=== PATIENT | male | born 1965 | race Caucasian/White ===

== ENCOUNTER 2019-11-29 00:21 | Inpatient (IN) | payer MEDICAID, OTHER ==
[~2019-11-29] VITALS: Ht 182.9 cm; Wt 79.4 kg
--- NOTE | 2019-11-29 00:35 | NUR ---
Dr. Reyes at bedside for MSE. ACE performed on RA.
[2019-11-29] MEDS ORDERED: ONDANSETRON 4 MG/2 ML VIAL IV ONE (00:45)
[2019-11-29] MEDS ORDERED: VANCOMYCIN IV 1,000 MG in IV DEXTROSE 5% 250 ML IV ONE (00:45)
[2019-11-29] MEDS ORDERED: HYDROMORPHONE 1 MG/1 ML DISP.SYRIN IV ONE (00:45)
--- NOTE | 2019-11-29 00:45 | NUR ---
Pt drove self to ER, able to enter room with steady gait. AO x 4. Primary reason for being here is redness, swelling on R upper arm, accompanied by 10/10 pain when arm is being used. Pt suspects it is an insect bite, 3 days ago. Patient able to move fingers on L arm, with pain and difficulty. Pulses equally palpable on both arms. L hand has less dexterity compared to R arm. Slight loss of sensation on the L thumb. No signs of cardio pulmonary distress. Breathing is even and unlabored. No other GI/ symptoms noted. Skin is intact otherwise. Fall and safety precautions maintained.
[2019-11-29] MEDS ORDERED: ONDANSETRON 4 MG/2 ML VIAL ONE (00:58)
[2019-11-29] MEDS ORDERED: HYDROMORPHONE 1 MG/1 ML DISP.SYRIN ONE (00:58)
[2019-11-29] MEDS ORDERED: VANCOMYCIN IV 200 ML ONE (00:58)
[2019-11-29 01:06] LABS: BASOPHILS # (AUTO) 0.1 K/uL (0.0-8.0); BASOPHILS % (AUTO) 0.4 % (0.0-2.0); EOSINOPHILS # (AUTO) 0.1 K/uL (0.0-0.7); EOSINOPHILS % (AUTO) 0.7 % (0.0-7.0); HEMATOCRIT 42.2 % (36.7-47.1); HEMOGLOBIN 14.1 g/dL (12.5-16.3); LYMPHOCYTES # (AUTO) 1.4 K/uL (20.0-40.0); LYMPHOCYTES % (AUTO) 8.4 % (20.5-51.5); MEAN CORPUSCULAR HEMOGLOBIN 29.8 uug (23.8-33.4); MEAN CORPUSCULAR HGB CONC 33 g/dL (32.5-36.3); MEAN CORPUSCULAR VOLUME 89.5 fL (73.0-96.2); MONOCYTES # (AUTO) 1.6 K/uL (2.0-10.0); MONOCYTES % (AUTO) 9.3 % (0.0-11.0); NEUTROPHILS # (AUTO) 13.8 K/uL (1.8-8.9); NEUTROPHILS % (AUTO) 81.2 % (38.5-71.5); PLATELET COUNT (AUTO) 235 K/uL (152-348); RED BLOOD CELL COUNT(AUTO) 4.72 MIL/uL (4.06-5.63)
[2019-11-29 01:11] LABS: BILIRUBIN,DIRECT 0.1 mg/dL (0.0-0.2); BILIRUBIN,TOTAL 0.8 mg/dL (0.2-1.0); CREATININE 1.2 mg/dL (0.6-1.3); POTASSIUM 4.1 mmol/L (3.5-5.1); TOTAL PROTEIN, SERUM 7.4 g/dL (6.4-8.2)
--- NOTE | 2019-11-29 01:30 | NUR ---
Brought down to Ct, accompanied by tech. Pt signed consent for IV contrast. Verbalized understanding on all teaching.
[2019-11-29] MEDS ORDERED: IOHEXOL 300MG/ML 100 ML INFUS..BTL ONE (01:31)
[2019-11-29] MEDS ORDERED: SWABABLE VALVE TRANSFER SET EA MC ONE (01:31)
[2019-11-29] MEDS ORDERED: IV NORMAL SALINE 250 ML IV ONE (01:32)
[2019-11-29] MEDS ORDERED: METRONIDAZOLE 500 MG/NS 100 ML PIGGYBACK IV ONE (01:45)
[2019-11-29 01:51] LABS: *BILIRUBIN,URIN NEGATIVE (NEGATIVE); *BLOOD, URINE 2+ (NEGATIVE); *CLARITY,URINE CLEAR (CLEAR); *COLOR,URINE YELLOW (YELLOW); *KETONES,URINE NEGATIVE (NEGATIVE); LEUKOCYTE ESTERASE ,URINE NEGATIVE (NEGATIVE); NITRITE, URINE NEGATIVE (NEGATIVE); PH,URINE 6.5 (5.0-8.0); UGLUCOSE NEGATIVE (NEGATIVE)
[2019-11-29 02:07] LABS: BACTERIA,URINE NONE SEEN /HPF (NONE SEEN); RBC,URINE 0-3 /HPF (0-3); SQUAMOUS EPITHELIAL CELL,UR NONE SEEN /HPF (NONE SEEN); WBC,URINE 20-50 /HPF (0-3)
[2019-11-29 02:08] LABS: MUCUS,URINE FEW /LPF (0-FEW)
--- NOTE | 2019-11-29 02:10 | NUR ---
Called [facility] for panel placement
[2019-11-29 02:11] LABS: *AMPHETAMINE, URINE POSITIVE (NEGATIVE); *BARBITURATE, URINE NEGATIVE (NEGATIVE); *CANNABINOID, URINE NEGATIVE (NEGATIVE); *COCCAINE, URINE POSITIVE (NEGATIVE); *OPIATE, URINE NEGATIVE (NEGATIVE); *PHENCYCLIDINE SCREEN,URINE NEGATIVE (NEGATIVE)
[2019-11-29] MEDS ORDERED: METRONIDAZOLE 500 MG/NS 100ML 100 ML IV ONE (02:15)
--- NOTE | 2019-11-29 02:19 | NUR ---
Dr. Reyes spoke with [facility] who accepted patient for MedSurg for Cellulitis.
--- NOTE | 2019-11-29 02:25 | NUR ---
Report given to Deonte NORRIS.
--- NOTE | 2019-11-29 03:00 | NUR ---
Pt transported to Med Surg in stable condition via wheelchair.
[2019-11-29 03:16] VITALS: BP 110/73
--- NOTE | 2019-11-29 03:49 | NUR ---
admitted male alert x4 with swelling of left upper extremity,oriented to floor,resting comfortably
[2019-11-29] MEDS ORDERED: ONDANSETRON 4 MG/2 ML VIAL IV PRN (05:00)
[2019-11-29] MEDS ORDERED: Z GUARD REMEDY PASTE 57 GM TUBE TOP PRN (05:00)
[2019-11-29] MEDS ORDERED: ZOLPIDEM 5 MG TABLET PO PRN (05:00)
[2019-11-29] MEDS ORDERED: MORPHINE SULFATE 2 MG/1 ML DISP.SYRIN IV PRN (05:00)
[2019-11-29] MEDS: IV NS 1000 ML 1,000 ML IV PRN ×2 (05:26→21:15)
[2019-11-29] MEDS ORDERED: PIPERACILLIN/TAZOBACTAM/D5W 50 ML IV ONE (05:36)
[2019-11-29] MEDS ORDERED: PIPERACILLIN SODIUM/TAZOBACTAM 3.375 G in IV DEXTROSE 5% 50 ML IV SCH (06:00)
[2019-11-29 06:43] LABS: BASOPHILS # (AUTO) 0.1 K/uL (0.0-8.0); BASOPHILS % (AUTO) 0.6 % (0.0-2.0); EOSINOPHILS # (AUTO) 0.3 K/uL (0.0-0.7); EOSINOPHILS % (AUTO) 1.7 % (0.0-7.0); HEMATOCRIT 40.8 % (36.7-47.1); HEMOGLOBIN 13.4 g/dL (12.5-16.3); LYMPHOCYTES # (AUTO) 1.7 K/uL (20.0-40.0); LYMPHOCYTES % (AUTO) 11.4 % (20.5-51.5); MEAN CORPUSCULAR HEMOGLOBIN 29.7 uug (23.8-33.4); MEAN CORPUSCULAR HGB CONC 33 g/dL (32.5-36.3); MEAN CORPUSCULAR VOLUME 90.5 fL (73.0-96.2); MONOCYTES # (AUTO) 1.5 K/uL (2.0-10.0); NEUTROPHILS # (AUTO) 11.4 K/uL (1.8-8.9); NEUTROPHILS % (AUTO) 76.3 % (38.5-71.5); PLATELET COUNT (AUTO) 217 K/uL (152-348); RED BLOOD CELL COUNT(AUTO) 4.51 MIL/uL (4.06-5.63)
[2019-11-29 07:03] LABS: BILIRUBIN,TOTAL 0.5 mg/dL (0.2-1.0); MAGNESIUM 1.8 mg/dL (1.8-2.4); PHOSPHOROUS 3.4 mg/dL (2.5-4.9); POTASSIUM 3.7 mmol/L (3.5-5.1); TOTAL PROTEIN, SERUM 6.7 g/dL (6.4-8.2)
[2019-11-29] MEDS: MORPHINE SULFATE 4 MG/1 ML DISP.SYRIN IV PRN ×2 (07:41→17:44)
[2019-11-29] MEDS: ENOXAPARIN SODIUM 40 MG/0.4 ML DISP.SYRIN SQ SCH (08:33)
--- NOTE | 2019-11-29 09:05 | NUR ---
Clinical Pharmacy Note: Vancomycin Pharmacy to Dose Subjective: To start vancomcyin in this 54 y/o male for indication of cellulitis Objective: weight 79kg height 182cm BUN/SCr 16/1.0 Wbc 15 temp 98.5 1gm vanco given in ER 11/28 @ 0100 Assessment/Plan As renal function appears stable, will start vanco regimen of 1250mg q11hr for estimated trough of 16.37, first dose today at 1200. Will order trough before 4th scheduled dose (due tomorrow 11/29 @2030). Will check level when available and adjust as needed. Will follow
[2019-11-29] MEDS: VANCOMYCIN IV 1,250 MG in IV DEXTROSE 5% 250 ML IV SCH ×2 (11:42→23:21)
[2019-11-29 12:00] VITALS: BP 108/68
--- NOTE | 2019-11-29 12:03 | NUR ---
WOUND CARE CONSULT: PT PRESENTS WITH SWELLING TO LEFT UPPER EXTREMITY PRESENT ON ADMISSION. RECOMMENDATIONS MADE FOR SKIN PROTECTION. PT ON ANTIBIOTICS. WILL SEE PRN.
[2019-11-29] MEDS: PIPERACILLIN SODIUM/TAZOBACTAM 3.375 G in IV DEXTROSE 5% 50 ML IV SCH ×2 (15:17→21:14)
[2019-11-29 16:00] VITALS: BP 128/71
[2019-11-29] MEDS: ACETAMINOPHEN 325 MG TABLET PO PRN (16:06)
[2019-11-29 20:00] VITALS: BP 119/77
[2019-11-30 04:00] VITALS: BP 141/80
[2019-11-30] MEDS: PIPERACILLIN SODIUM/TAZOBACTAM 3.375 G in IV DEXTROSE 5% 50 ML IV SCH ×3 (05:15→22:31)
[2019-11-30 06:08] LABS: BASOPHILS % (AUTO) 0.1 % (0.0-2.0); EOSINOPHILS # (AUTO) 0.5 K/uL (0.0-0.7); HEMOGLOBIN 13.6 g/dL (12.5-16.3); LYMPHOCYTES # (AUTO) 1.5 K/uL (20.0-40.0); LYMPHOCYTES % (AUTO) 12.9 % (20.5-51.5); MEAN CORPUSCULAR HGB CONC 33 g/dL (32.5-36.3); MEAN CORPUSCULAR VOLUME 90.6 fL (73.0-96.2); MONOCYTES # (AUTO) 1.3 K/uL (2.0-10.0); MONOCYTES % (AUTO) 10.7 % (0.0-11.0); NEUTROPHILS # (AUTO) 8.7 K/uL (1.8-8.9); NEUTROPHILS % (AUTO) 72.3 % (38.5-71.5); PLATELET COUNT (AUTO) 228 K/uL (152-348); RED BLOOD CELL COUNT(AUTO) 4.53 MIL/uL (4.06-5.63)
--- NOTE | 2019-11-30 06:16 | NUR ---
Patient slept well. No c/o pain at this time. IV on RAC 20g intact and patent w/ IVF infusing. All needs attended. Will endorse accordingly
[2019-11-30 06:34] LABS: CREATININE 1.1 mg/dL (0.6-1.3); MAGNESIUM 1.8 mg/dL (1.8-2.4); PHOSPHOROUS 2.9 mg/dL (2.5-4.9)
[2019-11-30 06:36] LABS: THYROID STIMULATING HORMONE 2.424 mIU/mL (0.358-3.740)
--- NOTE | 2019-11-30 08:05 | NUR ---
Clinical Pharmacy Note: Vancomycin Pharmacy to Dose Subjective: To start vancomcyin in this 54 y/o male for indication of cellulitis Objective: weight 79kg height 182cm BUN/SCr 14/1.1 Wbc 12 temp 97.6 Trough due tonight at 2029 Assessment/Plan Will continue with vanco regimen of 1250mg q11hr for estimated trough of 16.37, trough pending before 4th scheduled dose tonight at 2030. Will endorse RN to hold if Trough >20. Will check in am and adjust as needed. Will follow
[2019-11-30] MEDS: ENOXAPARIN SODIUM 40 MG/0.4 ML DISP.SYRIN SQ SCH (08:28)
[2019-11-30] MEDS: VANCOMYCIN IV 1,250 MG in IV DEXTROSE 5% 250 ML IV SCH ×2 (09:04→21:19)
[2019-11-30 11:27] VITALS: BP 125/70
[2019-11-30] MEDS: ACETAMINOPHEN 325 MG TABLET PO PRN (12:54)
[2019-11-30 15:20] VITALS: BP 140/74
[2019-11-30] MEDS: IV NS 1000 ML 1,000 ML IV PRN (16:05)
[2019-11-30 21:22] VITALS: BP 122/32
[2019-11-30] MEDS: MORPHINE SULFATE 4 MG/1 ML DISP.SYRIN IV PRN (21:33)
--- NOTE | 2019-11-30 23:00 | NUR ---
patient showered safely, resting, and eating sandwich.
[2019-12-01] MEDS: PIPERACILLIN SODIUM/TAZOBACTAM 3.375 G in IV DEXTROSE 5% 50 ML IV SCH ×2 (05:17→13:23)
[2019-12-01 06:30] VITALS: BP 127/80
[2019-12-01] MEDS: IV NS 1000 ML 1,000 ML IV PRN (06:34)
--- NOTE | 2019-12-01 07:26 | NUR ---
Clinical Pharmacy Note: Vancomycin Pharmacy to Dose Subjective: To continue vancomycin in this 54 y/o male for indication of cellulitis Objective: weight 79kg height 182cm BUN/SCr 14/1.1 (11/29) Wbc 12 (11/29) temp 98 Vanco trough level on 11/29 at 2030: 10 Assessment/Plan Since vanco trough level is 10 mcg/ml, will change vanco dose to 1250mg IVPB q9hr for estimated trough of 15 mcg/ml. 1st dose today at 0800. Plan to order vanco trough level before 4th dose of current regimen (not yet ordered). Will monitor renal function & adjust dose if needed. Will follow
[2019-12-01] MEDS ORDERED: VANCOMYCIN IV 1,250 MG in IV DEXTROSE 5% 250 ML IV SCH (08:00)
[2019-12-01] MEDS: ENOXAPARIN SODIUM 40 MG/0.4 ML DISP.SYRIN SQ SCH (08:24)
[2019-12-01 12:12] VITALS: BP 135/78
--- NOTE | 2019-12-01 14:16 | NUR ---
dc orders received noted and carried out,dc heplock per md orders.dc instruction and education and medical prescription given to the pt,pt verbalized understanding all the instruction,pt left the facility via private car in stable condition
[2019-12-02 12:06] LABS: *GC NAA Negative (Negative); *TRIC.VAG. NAA Negative (Negative)
== END 2019-12-01 14:15 | disposition home or self-care (01) | DRG 383 ==
LOC: ER 00:34 → MEDSURG3 02:45
PROVIDERS: ADMIT Hospitalist; ATTEND Hospitalist
DX: L03.114 Cellulitis of left upper limb (principal); E44.0 Moderate protein-calorie malnutrition; E88.09 Other disorders of plasma-protein metabolism, not elsewhere classified; E87.1 Hypo-osmolality and hyponatremia; S40.862A Insect bite (nonvenomous) of left upper arm, initial encounter; D72.829 Elevated white blood cell count, unspecified; F19.10 Other psychoactive substance abuse, uncomplicated; Z68.23 Body mass index [BMI] 23.0-23.9, adult; W57.XXXA Bitten or stung by nonvenomous insect and other nonvenomous arthropods, initial encounter; Y93.9 Activity, unspecified; Y92.009 Unspecified place in unspecified non-institutional (private) residence as the place of occurrence of the external cause
CPT/HCPCS: 36415; 70030-TC; 71045; 80307; 83735; 84100; 84443; 85025; 85730; 87040; 87086; 87491; 93005; 93307; A4663; G0378; J1170; J1650; J2270; J2405; J2543; J3370; J3490; J7030; J7050; J7060; Q9967